=== PATIENT | female | born 1935 | race Caucasian/White ===

== ENCOUNTER 2018-05-11 10:31 | Outpatient (CLI) | payer MEDICARE, BC ==
[~2018-05-11] VITALS: Ht 172.7 cm; Wt 210.9 kg
--- NOTE | ~2018-05-11 | HEMODYNAMI ---
PATIENT:ECHO TURNER MEDICAL RECORD: [id number] : 37 LOCATION:[facility] ADMISSION DATE: 05/11/18 Generatedon:05/11/201814:28 Patient name: ECHO TURNER Patient #: [id number] SSN: : 1935 Date of study: 05/11/2018 Page: Of Hemodynamic Procedure Report Patient Data Patient Demographics Procedure consent was obtained First Name: ECHO Gender: Female Last Name: JOHNNY : 1935 Middle Initial: B Age: 83 year(s) Patient #: [id number] Race: Unknown Additional ID: [id number] Contact details Address: [address] [place] [address] State: [place] City: [place] Zip code: [address] Past Medical History Allergies: No known allergies Admission Admission Data Admission Date: 05/11/2018 Admission Time: 10:31 Admit Source: Other Height (in.): 68 BSA: 1.9 (m2) Height (cm.): 172.72 BMI: 25.7 (kg/m2) Weight (lbs.): 169 Weight (kg.): 76.66 Lab Results Lab Result Date: 05/11/2018 Lab Result Time: 11:10 Biochemistry Name Units Result Min Max BUN mg/dl 7 --(*---)-- 7 18 Creatinine mg/dl 0.7 --(*---)-- 0.6 1.3 CBC Name Units Result Min Max Hematocrit % 40.6 -*(----)-- 42 54 Hemoglobin g/dl 14 --(*---)-- 13.5 17.5 Procedure Procedure Types Cath Procedure Diagnostic Procedure C C w/Coronaries Procedure Description Procedure Date Procedure Date: 05/11/2018 Procedure Start Time: 14:16 Procedure End Time: 14:27 Procedure Staff Name Function Leonel Easley MD Performing Physician Aubrey Olsen RT Monitor Sameer Goyal RN Nurse Procedure Data Cath Procedure Fluoroscopy Diagnostic fluoroscopy Total fluoroscopy Time: 1.5 time: 1.5 min min Diagnostic fluoroscopy Total fluoroscopy dose: 377 dose: 377 mGy mGy Contrast Material Contrast Material Type Amount (ml) Isovue 300 57 Entry Location Entry Primary Successful Side Size Upsize Upsize Entry Closure Vidal ccessful Closure Location (Fr) 1 (Fr) 2 (Fr) Remarks Device Remarks Radial Right 6 Fr Mechanical artery Short Compression Estimated blood loss: 5 ml Diagnostic catheters Device Type Used For End Catheter Placement DIAGNOSTIC Joshua 110cm Procedure 5Fr catheter ([id number]) Procedure Complications No complications Procedure Medications Medication Administration Route Dosage Oxygen etCO2 Nasal cannula 2 l/min 0.9% NaCl I.V. 100 ml/hr Versed I.V. 1 mg Fentanyl I.V. 50 mcg Heparin Flush Bag added to field 2 bags (1000units/500ml NS) Lidocaine 2% added to field 20 Radial Cocktail added to field 1 syringe (Verapomil 2mg/Nitro 400mcg/Heparin 1500units) Radial Cocktail I.A. 1 syringe (Verapomil 2mg/Nitro 400mcg/Heparin 1500units) Hemodynamics Rest BSA: 1.9 (m2) HGB: 14 (g/dl) O2 Consumption: Estimated: 158.3 (ml/min) O2 Consum ption indexed: Estimated:83.32 (ml/min/m) Heart Rate: 54 (bpm) Pressure Samples Time Site Value (mmHg) Purpose Heart Use Rate(bpm) 14:19 LV 134/-8,9 Snapshot 59 14:20 AO 125/54(84) Pullback 68 14:20 LV 127/-7,2 Pullback 68 Gradients Valve Time Site 1 Site 2 Mean SEP/DFP Peak To Heart Use (mmHg) (sec/min) Peak Rate (mmHg) (bpm) Aortic 14:20 LV AO 13 6 2 68 127/-7,2 125/54(84) Calculations Valve P-P Mean Valve Index Valve Source Name Gradient Area Flow (cm2) Aortic 2 13 2 13 Snapshots Pre Cath Intra NCS Post Cath Vital Signs Time Heart Resp SPO2 etCO2 NIBP (mmHg) Rhythm Pain Sedation Rate (ipm) (%) (mmHg) Status Level (bpm) 14:13:51 53 16 100 34.5 159/67(124) NSR 0 (11) 10(A) , No pain 14:18:36 55 27 97 15 153/62(123) NSR 0 (11) 10(A) , No pain 14:23:18 63 19 94 27 126/55(95) NSR 0 (11) 9(A) , No pain Medications Time Medication Route Dose Verified Delivered Reason Notes E ffectiveness by by 14:16:20 Lidocaine 2% added 20ml Sameer Sameer for local to vial Lorigan Lorigan anesthetic field RN RN 14:16:26 Oxygen etCO2 2 l/min Sameer Sameer Per Nasal Lorigan Lorigan physician cannula RN RN 14:16:38 Fentanyl I.V. 50 mcg Sameer Sameer for Lorigan Lorigan sedation RN RN 14:16:39 0.9% NaCl I.V. 100 Sameer Sameer Per ml/hr Lorigan Lorigan physician RN RN 14:16:48 Versed I.V. 1 mg Sameer Sameer for Lorigan Lorigan sedation RN RN 14:17:07 Heparin Flush added 2 bags Sameer Sameer used for Bag to Lorigan Lorigan procedure (1000units/500ml field RN RN NS) 14:17:26 Radial Cocktail added 1 Sameer Sameer used for (Verapomil to syringe Lorigan Jay Jay procedure 2mg/Nitro field JENKINS RN 400mcg/Heparin 1500units) 14:18:49 Radial Cocktail I.A. 1 Sameer Leonel used for (Verapomil syringe Jay Jay Easley MD procedure 2mg/Nitro RN 400mcg/Heparin 1500units) Procedure Log Time Note 13:38:23 Admit Source: Other 13:39:08 Stanislav Galvez RT(R) Scrub. 13:39:10 Diagnostic Cath status Elective 13:39:12 Time tracking: Regular hours (M-F 7:00 - 5:00) 13:39:15 Plan of Care:Hemodynamics will remain stable., Cardiac rhythm will remain stable., Comfort level will be maintained., Respiratory function will remain adequate., Patient/ family verbilizes understanding of procedure., Procedure tolerated without complication., Recovers from procedure without complications.. 13:42:49 Stanislav Galvez RT(R) sent for patient. Start room use. 13:43:00 H&P Date Dictated: 05/11/2018 New H&P dictated by physician.. 13:44:13 Patient Height : 68 inches 13:46:29 Patient Weight : 169 lbs 13:47:33 Patient received from Pre/Post Procedure Room to CCL 1 Alert and oriented. Tansferred to table in Supine position. 13:47:34 Warm blankets applied, and brenda hugger turned on for patient comfort. 13:47:34 Correct patient and procedure confirmed by team. 13:47:36 Signed procedure consent form obtained from patient. 13:47:38 ECG and BP/O2 sat monitors applied to patient. 13:47:39 Pre-procedure instructions explained to patient. 13:47:39 Pre-op teaching completed and patient verbalized understanding. 13:47:40 Family in waiting room. 13:47:42 Patient NPO since Midnight. 13:58:38 Patient allergic to No known allergies 13:58:40 Is the patient allergic to Iodine/contrast media? No. 13:58:42 Is patient on blood thinner?Yes 13:58:45 ACC The patient was administered the following blood thiners within the last 24 hours: ACCPlavix 13:59:35 Patient diabetic? No. 14:12:17 Previous problem with sedation/anesthesia? No ? 14:12:18 Snore? Yes 14:12:18 Sleep apnea? No 14:12:19 Deviated septum? No 14:12:20 Opens mouth fully? Yes 14:12:21 Sticks out tongue? Yes 14:12:22 Airway obstruction? No ? 14:12:23 Dentures? No ? 14:12:25 Modified Ruben's test Ulnar < 7 seconds 14:12:26 Patient pain scale 0/10 ?. 14:12:30 IV patent on arrival in left forearm with 0.9% NaCl at [facility]. 14:12:32 Lab results completed and on chart. 14:12:34 Right Radial & Right Groin area was prepped with chlora-prep and draped in sterile fashion 14:12:35 Alarms reviewed by R. N. 14:12:35 Sharps counted by scrub and verified by R.N. 14:12:41 Use device set Radial Dx or PCI 14:12:42 ACIST Syringe (88172) opened to sterile field. 14:12:42 Medline Cath Pack ([id number]) opened to sterile field. 14:12:43 Bag Decanter (2002S) opened to sterile field. 14:12:44 ACIST Manifold (53072) opened to sterile field. 14:12:45 ACIST Hand Control (35786) opened to sterile field. 14:12:45 Tegaderm 4 x 4 (1626W) opened to sterile field. 14:12:46 MBrace Wrist Support ([id number]) opened to sterile field. 14:12:47 SHEATH 6Fr Prelude Radial ([id number]) opened to sterile field. 14:12:48 DIAGNOSTIC WIRE .035 260cm J wire (718999) opened to sterile field. 14:12:52 Baseline sample Acquired. 14:12:52 Vital chart was started 14:12:56 Rhythm: sinus rhythm 14:13:01 Physician arrived 14:13:01 --------ALL STOP TIME OUT------ 14:13:02 Final Timeout: patient, procedure, and site verified with staff and physician. All members of the team are in agreement. 14:13:03 Right Radial & Right Groin site verified by team. 14:13:06 Physical assessment completed. ASA score P 2 - A patient with mild systemic disease as per Leonel Easley MD. 14:13:08 Sedation plan: IV Moderate Sedation Medication:Versed, Fentanyl 14:14:06 Zero performed for pressure channel P1 14:14:23 Zero performed for pressure channel P1 14:14:28 Zero performed for pressure channel P1 14:15:04 Zero performed for pressure channel P1 14:15:46 Lab Result : BUN 7 mg/dl 14:15:46 Lab Result : Hemoglobin 14 g/dl 14:15:46 Lab Result : Creatinine 0.7 mg/dl 14:15:46 Lab Result : Hematocrit 40.6 % 14:16:20 Lidocaine 2% 20ml vial added to field was administered by Sameer Goyal RN; for local anesthetic; 14:16:26 Oxygen 2 l/min etCO2 Nasal cannula was administered by Sameer Goyal RN; Per physician; 14:16:38 Procedure Started. 14:16:38 Fentanyl 50 mcg I.V. was administered by Sameer Goyal RN; for sedation; 14:16:39 0.9% NaCl 100 ml/hr I.V. was administered by Sameer Goyal RN; Per physician; 14:16:39 Local anesthetic to right radial artery with Lidocaine 2% by Leonel Easley MD.INITIAL ACCESS ONLY 14:16:48 Versed 1 mg I.V. was administered by Sameer Goyal RN; for sedation; 14:17:07 Heparin Flush Bag (1000units/500ml NS) 2 bags added to field was administered by Sameer Goyal RN; used for procedure; 14:17:26 Radial Cocktail (Verapomil 2mg/Nitro 400mcg/Heparin 1500units) 1 syringe added to field was administered by Sameer Goyal RN; used for procedure; 14:18:49 Radial Cocktail (Verapomil 2mg/Nitro 400mcg/Heparin 1500units) 1 syringe I.A. was administered by Leonel Easley MD; used for procedure; 14:19:33 A 6 Fr Short sheath was inserted into the Right Radial artery 14:19:39 A DIAGNOSTIC Joshua 110cm 5Fr catheter ([id number]) was advanced over the wire and used for Procedure. 14:19:59 LV gram done using ROMERO 14:20:02 Injector settings: Ml/sec: 5, Volume: 15, 14:20:18 EF : 60 % 14:20:20 LV hemodynamics recorded. 14:20:53 RCA angiography performed. 14:21:31 LCA angiography performed. 14:23:03 Catheter removed. 14:24:04 TR BAND Standard ([id number]) opened to sterile field. 14:24:21 Sheath removed intact; hemostasis achieved with Mechanical Compression to the Right Radial artery. 14:24:32 Procedure ended.(Physican Out) 14:25:34 Fluoroscopy time 01.50 minutes. 14::41 Flurop Dose total: 377 14:25:41 Fluoroscopy dose: 377 mGy 14:25:46 Contrast amount:Isovue 300 57ml. 14:25:47 Sharps counted by scrub and verified by R.N. 14:25:50 TR band inflated with 13cc of air. 14:25:51 Insertion/operative site no bleeding no hematoma. 14:26:02 Post right femoral artery:stable, soft, clean and dry 14:26:05 Post Procedure Pulses reassessed and unchanged 14:26:08 Post-procedure physical assessment completed. ASA score P 2 - A patient with mild systemic disease as per Leonel Easley MD. 14:26:10 Post procedure rhythm: unchanged. 14:26:12 Estimated blood loss: 5 ml 14:26:14 Post procedure instruction explained to patient.Patient verbalizes understanding. 14:26:21 Procedure type changed to Cath procedure, Diagnostic procedure, LHC, LHC w/Coronaries 14:26:57 Procedure and supply charges have been captured, reviewed, submitted and are correct. 14:27:00 Procedure Complication : No complications 14:27:02 Vital chart was stopped 14:27:02 See physician's report for complete and final results. 14:27:06 Report given to Pre/Post Procedure Room. 14:27:08 Patient transfered to Pre/Post Procedure Room with Stretcher. 14:27:10 Procedure ended. 14:27:10 Full Disclosure recording stopped 14:27:14 End room use (Document Last) Device Usage Item Name Manufacture Quantity Catalog Number Hospital Part Current M inimal Lot# / Charge Number Stock Stock Serial# Code ACIST Syringe Acist 1 15671 145126 413634 193004 2 0 (72563) [employer] Medline Cath Cardinal 1 [id number] 089185 71871 521280 5 [employer] ([id number]) Bag Decanter Microtek 1 2002S 820132 03527 836752 5 (2002S) Medical Inc. ACIST Manifold Acist 1 96511 007659 489653 979689 5 (39013) [employer] ACIST Hand Acist 1 30124 160774 489753 750169 5 Control (92380) [employer] Tegaderm 4 x 4 3M 1 1626W 454122 496439 758378 5 (1626W) MBrace Wrist Advanced 1 140-0250-00 120099 10512 611654 5 Support Vascular ([id number]) Dynamics SHEATH 6Fr Merit 1 [id number] 206313 505818 322591 5 Prelude Radial Medical ([id number]) DIAGNOSTIC WIRE [facility] 1 623892 514772 539624 864619 3 0 .035 260cm J wire (976728) DIAGNOSTIC Terumo 1 82-7210 366187 880921 145317 5 Joshua 110cm 5Fr catheter (410511) TR BAND Terumo 1 [id number] 180328 064217 982833 4 0 Standard ([id number]) Signature Audit [place] Stage Time Signature Unsigned Intra-Procedure 05/11/2018 Aubrey Olsen 2:28:30 PM RT(R) Signatures Monitor : Aubrey Olsen RT Signature : Date : Time : [address] [place] [address]
[2018-05-11] MEDS ORDERED: PLAVIX75 MG PO (10:54)
[2018-05-11] MEDS ORDERED: LEVOXYL25 MCG PO (10:54)
[2018-05-11] MEDS ORDERED: CRESTOR10 MG PO (10:55)
[2018-05-11] MEDS ORDERED: PROZAC40 MG PO (10:55)
[2018-05-11] MEDS ORDERED: XANAX0.5 MG PO (10:56)
[2018-05-11] MEDS ORDERED: PROTONIX40 MG PO (10:56)
[2018-05-11 11:05] VITALS: BP 166/63; Ht 172.7 cm; Wt 210.9 kg
[2018-05-11 11:17] LABS: BASOPHILS 0.4 % (0-2); EOSINOPHILS 2.1 % (0-7); HEMATOCRIT 40.6 % (36.0-48.0); IMMATURE GRANULOCYTES 0.4 % (0-5); LYMPHOCYTES 20.3 % (15-50); MCH 33.6 pg (26.0-34.0); MCHC 34.5 g/dL (31.0-37.0); MCV 97.4 fL (80.0-100.0); MEAN PLATELET VOLUME 9.2 fL (7.4-10.4); MONOCYTES 12.7 % (2-11); NEUTROPHILS 64.1 % (40-80); PLATELET COUNT 163 10x3/uL (130-400); RBC 4.17 10x6/uL (4.00-5.40); RDW 12.3 % (11.5-14.5); WBC 5.4 10x3/uL (4.8-10.8)
[2018-05-11 11:45] LABS: CALC OSMOLALITY 264 mosm/kg (275-300); CALCIUM 8.3 mg/dL (8.5-10.1); CARBON DIOXIDE 29.3 mmol/L (21.0-32.0); CHLORIDE - SERUM 98 mmol/L (98-107); CREATININE - SERUM 0.7 mg/dL (0.6-1.3); GLUCOSE 81 mg/dL (74-106); POTASSIUM - SERUM 4.5 mmol/L (3.5-5.1); SODIUM 134 mmol/L (136-145); UREA NITROGEN 7 mg/dL (7-18); eGFR NON AFRICAN AMERICAN 85 mL/min (90-120)
== END 2018-05-11 17:30 | disposition home or self-care (01) ==
LOC: D.CATH 10:31
PROVIDERS: Internal Medicine Cardiovascular Disease
DX: I20.9 Angina pectoris, unspecified (principal); I25.10 Atherosclerotic heart disease of native coronary artery without angina pectoris